=== PATIENT | female | born 1995 | race Caucasian/White ===

== ENCOUNTER 2022-12-29 16:47 | Emergency (ER) | payer OTHER, BC ==
[2022-12-29] MEDS ORDERED: Fentanyl 100 MCG/2 ML VIAL ONE (17:54)
[2022-12-29] MEDS ORDERED: Midazolam HCl 2 mg/2 ml Vial ONE ×2 (17:55→18:05)
[2022-12-29] MEDS ORDERED: Ondansetron PF 4 MG/2 ML Vial ONE (17:56)
== END 2022-12-29 19:00 | disposition home or self-care (01) ==
LOC: CSHERS 16:47
DX: S03.01 Dislocation of jaw, right side (principal); V89.2XXS Person injured in unspecified motor-vehicle accident, traffic, sequela
CPT/HCPCS: 21480; 96374; 96375; 99152; J2250; J2405; J3010